=== PATIENT | female | born 1975 | race Caucasian/White ===

== ENCOUNTER 2025-03-07 20:08 | Emergency (ER) | payer SELFPAY ==
[~2025-03-07] VITALS: Ht 162.6 cm; Wt 68.0 kg
[2025-03-07 20:16] VITALS: O2SAT 100
[2025-03-07] MEDS: KETOROLAC 15MG/ML VIAL IM ONE (21:52)
[2025-03-07] MEDS ORDERED: ACET-2708 MT (22:33)
[2025-03-07] MEDS ORDERED: NAPR-1176 MT (22:33)
[2025-03-07] MEDS ORDERED: ACETAMINOPHEN 500MG TABLET PO ONE (23:45)
[2025-03-07] MEDS: HYDROCODONE/ACETAMINOPHEN 5/325MG TABLET PO ONE (23:50)
[2025-03-08 00:40] VITALS: BP 121/77; PULSE 77; RESP 16; TEMP 37; O2SAT 100
== END 2025-03-08 00:49 | disposition home or self-care (01) ==
LOC: ER 20:08
DX: S82.832A Other fracture of upper and lower end of left fibula, initial encounter for closed fracture (principal); E11.9 Type 2 diabetes mellitus without complications; Z79.1 Long term (current) use of non-steroidal anti-inflammatories (NSAID); X50.1XXA Overexertion from prolonged static or awkward postures, initial encounter; Y93.89 Activity, other specified; Y92.89 Other specified places as the place of occurrence of the external cause; Y99.8 Other external cause status
CPT/HCPCS: 81025; 73610; 29515; 96372; 99283; J1885; Z7610 ×2